=== PATIENT | male | born 1950 | race Caucasian/White ===

== ENCOUNTER → 2017-07-14 | Outpatient (CLI) | payer OTHER ==
--- NOTE | 2017-07-15 03:00 | RAD ---
Examination: XR SHOULDER 2 OR MORE VIEWS dated 07/14/2017 9:03 AM CDT History: PAIN IN RT SHOULDER Comparison: None Technique: Four views of the right shoulder FINDINGS AND IMPRESSION: No acute fracture or dislocation. Mild degenerative changes of the acromioclavicular joint. Unremarkable glenohumeral joint. Electronically signed by: Jorge Dodge MD 07/15/2017 2:59 AM CDT
== END | disposition home or self-care (01) ==
LOC: RAD 08:58
PROVIDERS: ATTEND Orthopaedic Surgery
DX: M25.511 Pain in right shoulder (principal)

== ENCOUNTER → 2018-01-02 | Outpatient (CLI) | payer OTHER ==
--- NOTE | 2018-01-02 11:08 | MRI ---
EXAM DESCRIPTION: MRI right shoulder CLINICAL HISTORY: Right shoulder pain radiating down the arm. Rotator cuff syndrome COMPARISON: None. TECHNIQUE: Multiplanar, multisequence MR images of the right shoulder FINDINGS: Full-thickness insertional supraspinatus tendon tear spanning 1.1 cm. Retraction 1.3 cm. This superimposed on diffuse tendinosis. Muscle volume is mildly decreased with grade 1 fatty infiltration Infraspinatus tendinosis with low-grade interstitial fissuring. No high-grade tear. Muscle volume is normal with grade 1 fatty streaking along the myotendinous junction Teres minor tendon intact. Mild muscle volume loss and grade 1 fatty infiltration Subscapularis tendinosis. Partial articular and interstitial insertional tear of the superior insertion. There is a tiny focus of edema in the lesser tuberosity. Muscle volume moderately decreased with grade 1 fatty infiltration Long head biceps tendon is minimally subluxed superiorly. Short segment intra-articular tendinosis. Labral anchor intact. No acute labral detachment No high-grade glenohumeral chondrosis or focal osteochondral lesion Moderate acromioclavicular osteoarthritis with osteophytes indenting the supraspinatus. 7 mm subacromial enthesophyte with contiguous inferior lateral acromial spur. Lateral downsloping of the acromion IMPRESSION: Full-thickness insertional supraspinatus tendon tear with retraction Partial articular and interstitial insertional tear of the upper subscapularis tendon with associated minimal subluxation long head biceps tendon Electronically signed by: Iron Rodrigues MD 01/02/2018 11:07 AM CDT
== END ==
LOC: MRI 09:00
PROVIDERS: ATTEND Orthopaedic Surgery
DX: M75.121 Complete rotator cuff tear or rupture of right shoulder, not specified as traumatic (principal)

== ENCOUNTER → 2018-07-12 | Outpatient (CLI) | payer OTHER | LOC: GMAE 10:43 | PROVIDERS: ATTEND Family Medicine | DX: E03.9 Hypothyroidism, unspecified (principal); I10 Essential (primary) hypertension; Z12.5 Encounter for screening for malignant neoplasm of prostate | CPT/HCPCS: 84439; 84443; 84481; 84550; G0103 ==

== ENCOUNTER 2018-10-09 02:07 | Emergency (ER) | payer OTHER, MEDICARE ==
[2018-10-09 03:20] VITALS: TEMP 96.9; O2SAT 99
--- NOTE | 2018-10-09 03:42 | ED.PDOC ---
History of Present Illness - General Chief Complaint: General Stated Complaint: left foot pain from Gout Time Seen by Provider: 10/09/18 03:41 Source: patient Exam Limitations: no limitations - History of Present Illness Initial Comments: Iron Araujo 68 y/o male stated that he has history of gout for 10 years and had flare up the last 3 days with left ankle pain.Started on Uloric 40 mg 3 days ago.Denies history of recent injury to left ankle. Timing/Duration: getting worse, other - see hpi Severity: moderate Improving Factors: rest Worsening Factors: movement Associated Symptoms: denies symptoms Review of Systems - Review of Systems Musculoskeletal: States: joint pain - left ankle Past Medical History (General) - Patient Medical History Hx Hypertension: Yes Hx Thyroid Disease: Yes Hx Diabetes: No Hx Cancer: Yes - thyroid Surgical History: appendectomy, tonsillectomy, other - thyroidectomy - Vaccination History Hx Influenza Vaccination: Yes - Social History Hx Alcohol Use: No Hx Substance Use: No Hx Depression: No Hx Physical Abuse: No Hx Emotional Abuse: No Family Medical History - Family History Father Family History: Unknown Hx Cardiac Disease: Yes - mom Hx Family Cancer: Yes - colon-brother Physical Exam - Physical Exam General Appearance: Alert, Comfortable, No apparent distress Eye Exam: bilateral normal Ears, Nose, Throat: hearing grossly normal Neck: non-tender, supple Respiratory: chest non-tender, lungs clear Cardiovascular/Chest: normal peripheral pulses, regular rate, rhythm, no murmur Peripheral Pulses: radial,right: 2+, radial,left: 2+ Gastrointestinal/Abdominal: non tender, soft Back Exam: no CVA tenderness, no vertebral tenderness Extremity: non-tender, no pedal edema, no calf tenderness, other - left ankle with paiful rom Neurologic: alert, oriented x 3 Skin Exam: normal color, warm/dry Progress - Progress Progress: 10/09/18 04:01 Vital Signs - 8 hr 10/09/18 02:35 Temperature 96.9 F L Pulse Rate [ 68 Left] Respiratory 18 Rate Blood Pressure 127/87 [Right Arm] O2 Sat by Pulse 99 Oximetry Departure - Departure Clinical Impression: Gout attack Qualifiers: Gout site: ankle Gout etiology: unspecified cause Laterality: left Qualified Code(s): M10.9 - Gout, unspecified Time of Disposition: 04:02 Disposition: Discharge to Home or Self Care Condition: Fair Departure Forms: ED Discharge - Pt. Copy, Patient Portal Self Enrollment Instructions: Gout (DC), Lifestyle Changes to Manage Gout Referrals: Ry Ramirez MD [Primary Care Provider] - 1-2 Weeks Additional Instructions: Discontinue Uloric;Take Colcrys 0.6mg am/pm for 7 days;start taking Allopurinol 200 mg daily;Taper down on prednisone 10 mg every 3 days then off;Follow up with your primary Md regarding your blood pressure medicine Benicar w/"water pills" which can also elevate uric acid
[2018-10-09] MEDS ORDERED: DEXAMETHASONE INJ 4 MG/ML VIAL IM ONE (04:01)
[2018-10-09] MEDS ORDERED: KETOROLAC TROMETHAMINE INJ 30 MG/ML VIAL IM ONE (04:01)
[2018-10-09 04:46] VITALS: BP 132/83
== END 2018-10-09 04:47 | disposition home or self-care (01) ==
LOC: ER 02:07
DX: M10.9 Gout, unspecified (principal); I10 Essential (primary) hypertension; E89.0 Postprocedural hypothyroidism; Z85.850 Personal history of malignant neoplasm of thyroid; Z79.899 Other long term (current) drug therapy
CPT/HCPCS: J1100; J1885

== ENCOUNTER → 2018-10-26 | Outpatient (CLI) | payer OTHER | LOC: GMAE 14:33 | PROVIDERS: ATTEND Family Medicine | DX: M10.00 Idiopathic gout, unspecified site (principal) ==

== ENCOUNTER 2019-05-11 21:43 | Emergency (ER) | payer OTHER ==
--- NOTE | 2019-05-11 22:33 | ED.PDOC ---
History of Present Illness - General Chief Complaint: Blood Pressure Problem Stated Complaint: Hypertension Time Seen by Provider: 05/11/19 22:00 Source: patient Exam Limitations: no limitations - History of Present Illness Initial Comments: Patient presents with acute on chronic blood pressure elevation. He is currently being treated with an ARB for HTN and metoprolol for paroxysmal atrial fibrillation. He says that his pressure has been "going up recently" and that he checked it at home today and the "bottom number was 120" and the "top number was 150". He denies chest pain or dyspnea. Denies history of cardiac disease. Was a ppd smoker of cigarettes until 10 years ago when he decreased to 2 per day then 5 years ago when he stopped completely. No other complaints. Timing/Duration: changing over time, intermittent Severity: moderate Improving Factors: nothing Worsening Factors: nothing Associated Symptoms: denies symptoms Review of Systems - Review of Systems Constitutional: States: no symptoms reported EENTM: States: no symptoms reported Respiratory: States: no symptoms reported Cardiology: States: see HPI Gastrointestinal/Abdominal: States: no symptoms reported Genitourinary: States: no symptoms reported Musculoskeletal: States: no symptoms reported Skin: States: no symptoms reported Neurological: States: no symptoms reported Endocrine: States: no symptoms reported Hematologic/Lymphatic: States: no symptoms reported Past Medical History (General) - Patient Medical History Hx Hypertension: Yes Hx Thyroid Disease: Yes Hx Diabetes: No Hx Cancer: Yes - thyroid - Vaccination History Hx Influenza Vaccination: Yes - Social History Hx Alcohol Use: No Hx Substance Use: No Hx Depression: No Hx Physical Abuse: No Hx Emotional Abuse: No Family Medical History - Family History Father Family History: Unknown Hx Cardiac Disease: Yes - mom Hx Family Cancer: Yes - colon-brother Physical Exam - Physical Exam General Appearance: Alert Eye Exam: bilateral normal Ears, Nose, Throat: normal ENT inspection Neck: non-tender, full range of motion, supple Respiratory: lungs clear, normal breath sounds Cardiovascular/Chest: normal peripheral pulses, regular rate, rhythm, no edema Gastrointestinal/Abdominal: normal bowel sounds, non tender, soft Extremity: normal range of motion, non-tender, normal inspection, no pedal edema Neurologic: no motor/sensory deficits, alert, normal mood/affect, oriented x 3 Skin Exam: normal color Progress - Progress Progress: 05/12/19 01:02 Laboratory Tests 05/11/19 05/11/1919 22:29 22:29 22:30 WBC 6.4 RBC 4.39 L Hgb 13.7 L Hct 40.7 L MCV 92.7 MCH 31.2 H MCHC 33.7 RDW 15.5 H Plt Count 175 MPV 7.9 Absolute Neuts (auto) 4.30 Absolute Lymphs (auto) 1.40 Absolute Monos (auto) 0.50 Absolute Eos (auto) 0.10 Absolute Basos (auto) 0.00 Neutrophils % 67.0 Lymphocytes % 22.4 Monocytes % 8.4 Eosinophils % 1.6 Basophils % 0.6 Sodium 140 Potassium 3.8 Chloride 106 Carbon Dioxide 25 Anion Gap 12.8 BUN 18 Creatinine 1.30 BUN/Creatinine Ratio 13.8 Random Glucose 91 Serum Osmolality 280.9 Calcium 8.8 Magnesium 2.1 Total Bilirubin 0.9 AST 26 ALT 27 Alkaline Phosphatase 45 Creatine Kinase 153 CK-MB (CK-2) 3.3 CK-MB (CK-2) % Not Reportable Troponin I 0.04 B-Natriuretic Peptide 82.4 Serum Total Protein 6.8 Albumin 3.9 Globulin 2.9 Albumin/Globulin Ratio 1.3 Urine Color Urine Appearance Urine pH Ur Specific [place] Urine Protein Urine Glucose (UA) Urine Ketones Urine Blood Urine Nitrite Urine Bilirubin Urine Urobilinogen Ur Leukocyte Esterase Urine RBC Urine WBC Ur Epithelial Cells Urine Bacteria 05/11/19 23:43 WBC RBC Hgb Hct MCV MCH MCHC RDW Plt Count MPV Absolute Neuts (auto) Absolute Lymphs (auto) Absolute Monos (auto) Absolute Eos (auto) Absolute Basos (auto) Neutrophils % Lymphocytes % Monocytes % Eosinophils % Basophils % Sodium Potassium Chloride Carbon Dioxide Anion Gap BUN Creatinine BUN/Creatinine Ratio Random Glucose Serum Osmolality Calcium Magnesium Total Bilirubin AST ALT Alkaline Phosphatase Creatine Kinase CK-MB (CK-2) CK-MB (CK-2) % Troponin I B-Natriuretic Peptide Serum Total Protein Albumin Globulin Albumin/Globulin Ratio Urine Color Yellow Urine Appearance Clear Urine pH 6.0 Ur Specific [place] 1.015 Urine Protein Negative Urine Glucose (UA) Negative Urine Ketones Negative Urine Blood Negative Urine Nitrite Negative Urine Bilirubin Negative Urine Urobilinogen 0.2 Ur Leukocyte Esterase Trace H Urine RBC 0-1 Urine WBC 3-5 H Ur Epithelial Cells 0 Urine Bacteria 0 Patient's blood pressure corrected to 120s systolic and 70s diastolic after clonidine 0.1 mg po x one. EKG showed sinus bradycardia, no ST changes nor T wave inversions. No LBBB. BNP wnl. Negative troponin. No signs of end organ damage. Care instructions given. E.R. warnings given. Questions were elicited and answered. Patient voiced understanding and agreement with the plan. Departure - Departure Clinical Impression: Hypertensive urgency Disposition: Discharge to Home or Self Care Condition: Good Departure Forms: ED Discharge - Pt. Copy, Patient Portal Self Enrollment Instructions: DI for High Blood Pressure Diet: low fat, low cholesterol, low salt diet Activity: increase activity as tolerated Referrals: Ry Ramirez MD [Primary Care Provider] - 1-2 Weeks Additional Instructions: Follow up with your primary care physician next week. Get your blood pressure machine (sphygnomanometer) calibrated. Return to the E.R. for chest pain or shortness of breath or for a blood pressure greater than 180 systolic or 110 diastolic.
--- NOTE | 2019-05-11 22:57 | RAD ---
EXAM DESCRIPTION: Chest,1 View CLINICAL HISTORY: hypertension COMPARISON: None FINDINGS: Cardiac silhouette is within normal limits. Aorta is tortuous. There is no focal parenchymal or pleural disease. There is no acute osseous process visualized. IMPRESSION: No evidence of acute cardiopulmonary disease. Electronically signed by: Ghassan Small MD 05/11/2019 10:55 PM CDT
[2019-05-11] MEDS: cloNIDine HCL 0.1 MG TAB PO ONE (23:45)
[2019-05-12 00:36] VITALS: O2SAT 98
[2019-05-12 01:01] VITALS: TEMP 97.5
[2019-05-12 01:12] VITALS: BP 106/77
== END 2019-05-12 01:12 | disposition home or self-care (01) ==
LOC: ER 21:43
DX: I16.0 Hypertensive urgency (principal); R00.1 Bradycardia, unspecified; I48.0 Paroxysmal atrial fibrillation; E07.9 Disorder of thyroid, unspecified; Z85.850 Personal history of malignant neoplasm of thyroid; Z79.899 Other long term (current) drug therapy; Z87.891 Personal history of nicotine dependence

== ENCOUNTER → 2019-09-20 | Outpatient (CLI) | payer OTHER | LOC: GMAE 10:50 | PROVIDERS: ATTEND Family Medicine | DX: Z12.5 Encounter for screening for malignant neoplasm of prostate (principal); E03.9 Hypothyroidism, unspecified; I10 Essential (primary) hypertension | CPT/HCPCS: 84439; 84443; 84481; G0103 ==

== ENCOUNTER 2019-12-29 | Emergency (ER) | payer OTHER | END 2019-12-29 10:15 | disposition home or self-care (01) | DX: J06.9 Acute upper respiratory infection, unspecified (principal); J44.9 Chronic obstructive pulmonary disease, unspecified; Z79.899 Other long term (current) drug therapy; Z79.01 Long term (current) use of anticoagulants ==